=== PATIENT | female | born 1975 | race Caucasian/White ===

== ENCOUNTER 2016-04-25 21:55 | Emergency (ER) | payer SELFPAY ==
[~2016-04-25] VITALS: Ht 154.9 cm; Wt 61.5 kg
[2016-04-25 22:02] VITALS: Ht 154.9 cm; Wt 61.5 kg
== END 2016-04-25 23:40 | disposition left against medical advice (07) ==
LOC: FTE 21:55
DX: Z53.21 Procedure and treatment not carried out due to patient leaving prior to being seen by health care provider (principal)

== ENCOUNTER 2016-07-08 20:26 | Emergency (ER) | payer SELFPAY ==
[~2016-07-08] VITALS: Ht 152.4 cm; Wt 62.0 kg
[2016-07-08 21:12] VITALS: Ht 152.4 cm; Wt 62.0 kg
[2016-07-08] MEDS ORDERED: HYDROCODONE/APAP (5/325) TAB PO ONE (22:30)
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
[2016-07-08] MEDS ORDERED: IBUP-1542 PO (23:32)
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
== END 2016-07-09 00:34 | disposition home or self-care (01) ==
LOC: FTE 20:26
DX: S29.001A Unspecified injury of muscle and tendon of front wall of thorax, initial encounter (principal); S19.9XXA Unspecified injury of neck, initial encounter; R07.9 Chest pain, unspecified; V89.2XXA Person injured in unspecified motor-vehicle accident, traffic, initial encounter
CPT/HCPCS: 71010; 72125